=== PATIENT | male | born 1975 | race Two or more races ===

== ENCOUNTER 2018-12-03 12:06 | Emergency (ER) | payer OTHER ==
[~2018-12-03] VITALS: Ht 180.3 cm; Wt 226.0 kg
[2018-12-03] MEDS ORDERED: IPRATROPIUM/ALBUTEROL 0.5-3(2.5)MG/3ML NEB HHN ONE (13:30)
[2018-12-03] MEDS ORDERED: BUMETANIDE 1MG/4ML VIAL IV ONE (13:30)
[2018-12-03] MEDS ORDERED: PREDNISONE 20MG TABLET PO ONE (13:30)
[2018-12-03 13:52] LABS: BASOPHILS % 0.1 % (0.0-2.0); EOSINOPHILS % 1.2 % (0.0-5.0); LYMPHOCYTES % 20.7 % (20.0-50.0); MEAN CORPUSCULAR HEMOGLOBIN 28.8 pg (28.0-32.0); MEAN CORPUSCULAR VOLUME 86.4 fL (80.0-94.0); MEAN PLATELET VOLUME 10.3 fl (7.4-10.4); MONOCYTES % 5.9 % (2.0-8.0); NEUTROPHILS % 72.1 % (40.0-76.0); PLATELET 228 x1000/uL (130-400); RED BLOOD CELL COUNT 4.51 mill/uL (4.7-6.1)
[2018-12-03 13:53] LABS: CHLORIDE 98 mEq/L (98-107)
[2018-12-03] MEDS ORDERED: POTASSIUM CHLORIDE 20MEQ/PACKET PO ONE (14:45)
[2018-12-03] MEDS ORDERED: KCL 10MEQ/50ML PREMIX 50 ML IV ONE (15:00)
[2018-12-03 17:33] VITALS: BP 137/76
== END 2018-12-03 17:35 | disposition home or self-care (01) ==
LOC: ER 12:06 → EDBD 12:06 → EDBEDREQ 14:41 → ER 17:35 → CANBEDREQ 19:02
DX: J44.1 Chronic obstructive pulmonary disease with (acute) exacerbation (principal); E87.6 Hypokalemia; E66.01 Morbid (severe) obesity due to excess calories; I50.9 Heart failure, unspecified; G47.30 Sleep apnea, unspecified; F17.200 Nicotine dependence, unspecified, uncomplicated; Z68.44 Body mass index [BMI] 60.0-69.9, adult; Z98.890 Other specified postprocedural states
CPT/HCPCS: 36415; 71045; 80053; 83880; 84484; 85025; 93005; 94640; 96365; 96375; 99284; J3480; J3490; J7512; J7620; Z7610